=== PATIENT | female | born 1990 | race Caucasian/White ===

== ENCOUNTER 2017-12-30 17:35 | Emergency (ER) | payer OTHER ==
[~2017-12-30] VITALS: Ht 157.5 cm; Wt 75.7 kg
[2017-12-30 17:37] VITALS: Ht 157.5 cm; Wt 75.7 kg
[2017-12-30 18:56] LABS: BASOPHIL % 0.5 % (0-2); PLATELET COUNT 267 x10^3mcL (130-400); RED CELL DISTRIBUTION WIDTH 13.2 % (11.5-14.5)
[2017-12-30 19:04] LABS: CALCIUM 9.5 mg/dL (8.5-10.1); CARBON DIOXIDE 27.5 mmol/L (21-32); CHLORIDE SERUM 100 mmol/L (98-107); CREATININE SERUM 0.6 mg/dL (0.6-1.0); GFR1 > 60 mL/min; GLUCOSE SERUM 97 mg/dL (74-106); POTASSIUM SERUM 3.5 mmol/L (3.5-5.1); SODIUM SERUM 134 mmol/L (136-145)
[2017-12-30 19:50] VITALS: BP 128/79
== END 2017-12-30 19:50 | disposition home or self-care (01) ==
LOC: ED 17:35
PROVIDERS: Emergency Medicine
DX: O26.891 Other specified pregnancy related conditions, first trimester (principal); R10.31 Right lower quadrant pain; Z3A.08 8 weeks gestation of pregnancy; Z88.8 Allergy status to other drugs, medicaments and biological substances; Z98.890 Other specified postprocedural states
CPT/HCPCS: 36415

== ENCOUNTER 2018-06-09 22:00 | Emergency (ER) | payer OTHER ==
[~2018-06-09] VITALS: Ht 160 cm; Wt 79.4 kg
[2018-06-09 22:32] VITALS: BP 113/69; Ht 160 cm; Wt 79.4 kg
== END 2018-06-09 23:40 | disposition home or self-care (01) ==
LOC: ED 22:00
DX: O26.893 Other specified pregnancy related conditions, third trimester (principal); H10.33 Unspecified acute conjunctivitis, bilateral; H10.023 Other mucopurulent conjunctivitis, bilateral; Z3A.32 32 weeks gestation of pregnancy; Z98.890 Other specified postprocedural states

== ENCOUNTER 2020-05-18 18:30 | Emergency (ER) | payer OTHER ==
[~2020-05-18] VITALS: Ht 160 cm; Wt 73.1 kg
[2020-05-18 18:44] VITALS: Ht 160 cm; Wt 73.1 kg
[2020-05-18 19:15] LABS: BASOPHIL % 1.2 % (0.2-1.3); PLATELET COUNT 280 x10^3mcL (179-408)
[2020-05-18 19:31] LABS: CALCIUM 8.6 mg/dL (8.5-10.1); CARBON DIOXIDE 27.6 mmol/L (21-32); CHLORIDE SERUM 101 mmol/L (98-107); CREATININE SERUM 0.6 mg/dL (0.6-1.0); GFR1 > 60 mL/min; GLUCOSE SERUM 100 mg/dL (74-106); POTASSIUM SERUM 3.5 mmol/L (3.5-5.1); SODIUM SERUM 139 mmol/L (136-145)
[2020-05-18 19:37] LABS: ALBUMIN 3.8 g/dL (3.4-5.0); ALKALINE PHOSPHATASE 54 U/L (46-116); ALT/SGPT 23 U/L (14-59); AMYLASE 86 U/L (25-115); AST/SGOT 16 U/L (15-37); BILIRUBIN TOTAL 0.2 mg/dL (0.20-1.00); LIPASE 109 IU/L (73-393); TOTAL PROTEIN, SERUM 7.3 g/dL (6.4-8.2)
[2020-05-18 19:56] LABS: rbc morphology (normal/abnorm) ABNORMAL (NORMAL)
[2020-05-18 19:57] LABS: ovalocyte/elliptocyte 1+
[2020-05-18] MEDS ORDERED: IRON65 MG PO (20:24)
[2020-05-18] MEDS ORDERED: ULTRAM50 MG PO ×2 (20:24→20:29)
[2020-05-18 20:52] VITALS: BP 116/63
== END 2020-05-18 20:52 | disposition home or self-care (01) ==
LOC: ED 18:30
PROVIDERS: Emergency Medicine
DX: N83.202 Unspecified ovarian cyst, left side (principal); N83.201 Unspecified ovarian cyst, right side; D50.9 Iron deficiency anemia, unspecified; Z98.890 Other specified postprocedural states; Z88.8 Allergy status to other drugs, medicaments and biological substances